=== PATIENT | male | born 1940 | race Caucasian/White ===

== ENCOUNTER 2018-08-28 12:03 | Inpatient (IN) | payer MEDICARE, MEDICAID ==
[2018-08-28] MEDS ORDERED: Sodium Chloride 0.9% 1,000 ML IV STA (12:32)
[2018-08-28 12:48] LABS: VENOUS BLOOD GAS BASE EXCESS 3.4 mmol/L (0.0-2.0); VENOUS BLOOD GAS PCO2 55 mmHg (40-60); VENOUS BLOOD GAS PO2 18 mm/Hg (30-55); VENOUS BLOOD PH 7.35 (7.32-7.43)
[2018-08-28] MEDS ORDERED: Piperacillin/Tazobact 4.5 GM in Sodium Chloride 0.9% 100 ML IVPB STA (12:56)
[2018-08-28] MEDS ORDERED: Vancomycin 1 g Inj ONE (13:04)
[2018-08-28 13:05] LABS: BASO % 0.4 % (0.0-2.0); EOS # 0.1 K/uL (0.0-0.7); EOS % 0.7 % (0.0-4.0); HEMOGLOBIN 13.4 g/dL (12.0-18.0); INR 1.5; LYMPH # 0.8 K/uL (1.0-4.3); LYMPH % 8.4 % (20.0-40.0); MEAN CELL VOLUME 93.5 fl (80.0-94.0); MEAN CORPUSCULAR HEMOGLOBIN 31.7 pg (27.0-31.0); MEAN CORPUSCULAR HGB CONC 33.9 g/dL (33.0-37.0); MEAN PLATELET VOLUME 7.8 fl (7.2-11.7); MONO # 0.4 K/uL (0.0-0.8); MONO % 3.9 % (0.0-10.0); NEUT # 8.2 K/uL (1.8-7.0); NEUT % 86.6 % (50.0-75.0); PLATELET COUNT 235 K/uL (130-400); PROTHROMBIN TIME 17.1 Seconds (9.8-13.1); RBC 4.23 Mil/uL (4.40-5.90); RED CELL DISTRIBUTION WIDTH 13.9 % (11.5-14.5); WHITE BLOOD COUNT 9.5 K/uL (4.8-10.8)
[2018-08-28 13:12] LABS: ALB/GLOB RATIO 1.2 (1.0-2.1); ALBUMIN 4.8 g/dL (3.5-5.0); ALT/SGPT 31 U/L (21-72); AST/SGOT 28 U/L (17-59); BLOOD UREA NITROGEN 18 mg/dl (9-20); CALCIUM 8.9 mg/dL (8.4-10.2); GFR NON-AFRICAN AMERICAN 59
[2018-08-28] MEDS: Lactated Ringer's 1,000 ML IV SCH ×3 (13:49→20:46)
--- NOTE | 2018-08-28 14:07 | CT ---
Date of service: 08/28/2018 PROCEDURE: CT HEAD WITHOUT CONTRAST. HISTORY: fever AMS COMPARISON: None available. TECHNIQUE: Axial computed tomography images were obtained through the head/brain without intravenous contrast. Radiation dose: Total exam DLP = 886.75 mGy-cm. This CT exam was performed using one or more of the following dose reduction techniques: Automated exposure control, adjustment of the mA and/or kV according to patient size, and/or use of iterative reconstruction technique. FINDINGS: HEMORRHAGE: No intracranial hemorrhage. BRAIN: No mass effect or edema. Chronic encephalomalacia is seen in the right anterior and posterior frontal lobe. Moderate atrophy VENTRICLES: Unremarkable. No hydrocephalus. CALVARIUM: Unremarkable. PARANASAL SINUSES: Unremarkable as visualized. No significant inflammatory changes. MASTOID AIR CELLS: Unremarkable as visualized. No inflammatory changes. OTHER FINDINGS: None. IMPRESSION: No acute intracranial findings
--- NOTE | 2018-08-28 14:31 | ED PDOC ---
HPI: SOB/CHF/COPD Time Seen by Provider: 08/28/18 12:31 Chief Complaint (Nursing): Shortness Of Breath Chief Complaint (Provider): Shortness Of Breath History Per: Patient History/Exam Limitations: no limitations Onset/Duration Of Symptoms: Days (x 1) Current Symptoms Are (Timing): Still Present Recently: Treated By A Physician Additional Complaint(s): 78 year old male with atrial fibrillation, HTN and diabetes presents to the ED with daughter for evaluation of shortness of breath with wheezing and cough, beginning this morning. Patient is altered. Therefore, history is obtained through the daughter. The patient recently underwent an extensive workup at [place] for COPD. Last night, he was started on Mucinex for COPD. Denies abdominal pain, headche, vomiting, diarrhea, hesitancy, dysuria, frequency and urinary hesitancy. PMD: Dr. Jones Past Medical History Reviewed: Historical Data, Nursing Documentation, Vital Signs Vital Signs: Last Vital Signs Temp 103.1 F H 08/28/18 13:48 Pulse 76 08/28/18 13:48 Resp 20 08/28/18 13:48 BP 138/78 08/28/18 13:48 Pulse Ox 96 08/28/18 13:48 Primary Care Provider: Non [facility] Provider, - Medical History PMH: Atrial Fibrillation, COPD, HTN, Chronic Kidney Disease - Surgical History Surgical History: No Surg Hx - Family History Family History: States: Unknown Family Hx - Social History Ex-Smoker (has not smoked in the last 12 months): Yes Alcohol: Social Drugs: Denies - Home Medications Home Medications: Ambulatory Orders Medication Instructions Recorded Albuterol Sulfate [Ventolin Hfa] 1 puff IH Q6 PRN 08/28/18 Apixaban [Eliquis] 5 mg PO Q12 08/28/18 Atorvastatin [Lipitor] 10 mg PO HS 08/28/18 Fluticasone/Umeclidin/Vilanter 1 puff IH DAILY 08/28/18 [Trelegy Ellipta 100-62.5-25] Gabapentin [Neurontin] 300 mg PO Q12 08/28/18 MetFORMIN ER [Glucophage XR] 500 mg PO DAILY 08/28/18 Terazosin [Hytrin] 6 mg PO HS 08/28/18 [id number] CD [Cardizem CD] 180 mg PO DAILY 08/28/18 - Allergies Allergies/Adverse Reactions: Allergies Allergy/AdvReac Type Severity Reaction Status Date / Time No Known Allergies Allergy Verified 08/28/18 12:13 Review of Systems ROS Statement: Except As Marked, All Systems Reviewed And Found Negative Respiratory: Positive for: Cough, Shortness of Breath, Wheezing Gastrointestinal: Negative for: Vomiting, Abdominal Pain, Diarrhea Genitourinary Male: Negative for: Dysuria, Frequency, Incontinence, Hematuria Neurological: Negative for: Headache Physical Exam - Reviewed Nursing Documentation Reviewed: Yes Vital Signs Reviewed: Yes - Physical Exam Appears: Positive for: No Acute Distress (patient found to be 105.3 degrees rectally) Head Exam: Positive for: ATRAUMATIC, NORMOCEPHALIC Skin: Positive for: Normal Color, Dry Eye Exam: Positive for: EOMI, Normal appearance, PERRL Cardiovascular/Chest: Positive for: Regular Rate, Rhythm. Negative for: Murmur Respiratory: Positive for: Normal Breath Sounds. Negative for: Respiratory Distress Extremity: Positive for: Normal ROM. Negative for: Deformity Neurological/Psych: Positive for: Alert, Lethargic (but arousabl; able to confirm lack of headache, nausea, vomiting or diarrhea) - Laboratory Results Result Diagrams: 08/28/18 12:38 08/28/18 12:38 Lab Results: pO2 18 mm/Hg (30-55) L 08/28/18 12:36 VBG pH 7.35 (7.32-7.43) 08/28/18 12:36 VBG pCO2 55 mmHg (40-60) 08/28/18 12:36 VBG HCO3 25.5 mmol/L 08/28/18 12:36 VBG Total CO2 32.1 mmol/L (22-28) H 08/28/18 12:36 VBG O2 Sat (Calc) 24.5 % (40-65) L 08/28/18 12:36 VBG Base Excess 3.4 mmol/L (0.0-2.0) H 08/28/18 12:36 VBG Potassium 4.0 mmol/L (3.6-5.2) 08/28/18 12:36 Sodium 138.0 mmol/L (132-148) 08/28/18 12:36 Chloride 103.0 mmol/L (98-107) 08/28/18 12:36 Glucose 98 mg/dL (75-110) 08/28/18 12:36 Lactate 3.2 mmol/L (0.7-2.1) H 08/28/18 12:36 FiO2 21.0 % 08/28/18 12:36 PT 17.1 Seconds (9.8-13.1) H 08/28/18 12:38 INR 1.5 08/28/18 12:38 APTT 33.0 Seconds (25.6-37.1) 08/28/18 12:38 Troponin I < 0.0120 ng/mL (0.00-0.120) 08/28/18 12:38 Total Bilirubin 0.7 mg/dl (0.2-1.3) 08/28/18 12:38 AST 28 U/L (17-59) 08/28/18 12:38 ALT 31 U/L (21-72) 08/28/18 12:38 Alkaline Phosphatase 62 U/L (38-126) 08/28/18 12:38 Total Protein 9.0 G/DL (6.3-8.2) H 08/28/18 12:38 Albumin 4.8 g/dL (3.5-5.0) 08/28/18 12:38 Globulin 4.1 gm/dL (2.2-3.9) H 08/28/18 12:38 Albumin/Globulin Ratio 1.2 (1.0-2.1) 08/28/18 12:38 - ECG ECG Rhythm: Positive for: Sinus Rhythm Interpretation Of Abn EKG: premature atrial contractions O2 Sat by Pulse Oximetry: 96 (RA) Pulse Ox Interpretation: Normal - Critical Care Total Time (In Min): 45 Comments: patient required immediate and recurrent bedside attention and discussion w multiple specialists and admitting MD Medical Decision Making Medical Decision Makin:07 MDM: Patient found to be febrile at 105.3 degrees F rectally initially. Sepsis protocol was initiated immediately. Bilateral IV access obtained with cultures. Fluids initiated with active cooling procedures and Tylenol Blood work reviewed and reveals elevated lactate at 3.3. Normal WBC and unremarkable chemistry. Negative for influenze CXR reviewed by me and reveals left sided infiltrate. 13:45 Mental staus improving as patient defervesces. Now able to tell full address, date and location. Continues to deny neck pain and headache. Will repeat lactate around 15:15 and admit to medicine as antibiotics are initiated. Dr. Jones PMD/pulm contacted at [facility] w management. 14:30 Dr. Brenner, medical service security professionals, made aware. 14:40 Dr. Dumont, infectious disease on-call, recommends continuing Zosyn and Vancomycin. Scribe Attestation: Documented by Renee Maria, acting as a scribe for Sebastien Tejada III, DO Provider Scribe Attestation: All medical record entries made by the Scribe were at my direction and personally dictated by me. I have reviewed the chart and agree that the record accurately reflects my personal performance of the history, physical exam, medical decision making, and the department course for this patient. I have also personally directed, reviewed, and agree with the discharge instructions and disposition. Disposition - Clinical Impression Clinical Impression: Severe sepsis, Pneumonia - Patient ED Disposition Is Patient to be Admitted: Yes Counseled Patient/Family Regarding: Studies Performed, Diagnosis - Disposition Disposition Time: 14:00 Condition: GUARDED - Pt Status Changed To: Hospital Disposition Of: Inpatient - Admit Certification Admit to Inpatient:: After my assessment, the patient will require hospitalization for at least two midnights. This is because of the severity of symptoms shown, intensity of services needed, and/or the medical risk in this patient being treated as an outpatient.
[2018-08-28 14:44] LABS: EOSINOPHIL 1 % (0-7); LYMPHOCYTE 8 % (20-50); MONOCYTE 4 % (0-10); NEUTROPHIL 87 % (42-75); PLATELET ESTIMATE NORMAL (NORMAL); TOTAL CELLS COUNTED 100
[2018-08-28 14:45] LABS: ANISOCYTOSIS SLIGHT; LARGE PLATELETS PRESENT
[2018-08-28] MEDS ORDERED: Lactated Ringer's 1,000 ML IV SCH (14:45)
--- NOTE | 2018-08-28 15:03 | RAD ---
Date of service: 08/28/2018 HISTORY: SOB COMPARISON: No prior. FINDINGS: LUNGS: Peripheral, left upper lobe infiltrates. The finding is marked on the study for review. PLEURA: No significant pleural effusion identified, no pneumothorax apparent. CARDIOVASCULAR: Atherosclerotic calcifications identified primarily aortic arch. No radiographic findings to suggest acute or significant cardiovascular disease. OSSEOUS STRUCTURES: No significant abnormalities. VISUALIZED UPPER ABDOMEN: Normal. OTHER FINDINGS: None. IMPRESSION: Peripheral left upper lobe infiltrates. Follow-up to resolution advised. No comparison studies.
[2018-08-28] MEDS ORDERED: Albuterol-Ipratrop 3 mg / 0.5 (3 ml) UD INH STA (15:30)
[2018-08-28 15:50] LABS: VENOUS BLOOD GAS BASE EXCESS 0.5 mmol/L (0.0-2.0); VENOUS BLOOD GAS PCO2 37 mmHg (40-60); VENOUS BLOOD GAS PO2 53 mm/Hg (30-55); VENOUS BLOOD PH 7.43 (7.32-7.43)
[2018-08-28] MEDS ORDERED: Albuterol-Ipratrop 3 mg / 0.5 (3 ml) UD ONE (16:32)
--- NOTE | 2018-08-28 17:49 | CARD ---
APPROVED REPORT Date of service: 08/28/2018 EKG Measurement Heart [id number] <Conclusion> Sinus rhythm with 1st degree AV block with premature atrial complexes Otherwise normal ECG
[2018-08-28] MEDS ORDERED: Sodium Chloride 3% for Inhalation 4 ML VIAL.NEB IH PRN (18:37)
[2018-08-28] MEDS ORDERED: methylPREDNISolone 80 MG in Sodium Chloride 0.9% 50 ML IVPB SCH (18:45)
[2018-08-28 19:09] LABS: SQUAMOUS EPITHIAL < 1 /hpf (0-5); URINE BILIRUBIN NEGATIVE (NEGATIVE); URINE BLOOD MODERATE (NEGATIVE); URINE CLARITY CLEAR (Clear); URINE COLOR YELLOW (YELLOW); URINE GLUCOSE (UA) 50 mg/dL (NEGATIVE); URINE LEUKOCYTE ESTERASE NEG Leu/uL (Negative); URINE PROTEIN 30 mg/dL (NEGATIVE); URINE UROBILINOGEN 0.2-1.0 mg/dL (0.2-1.0)
[2018-08-28] MEDS: Piperacillin/Tazobact 4.5 GM in Sodium Chloride 0.9% 100 ML IVPB SCH (19:30)
[2018-08-28] MEDS: Albuterol-Ipratrop 3 mg / 0.5 (3 ml) UD INH SCH (19:46)
[2018-08-29] MEDS: Piperacillin/Tazobact 4.5 GM in Sodium Chloride 0.9% 100 ML IVPB SCH ×3 (00:37→16:54)
[2018-08-29] MEDS: Albuterol-Ipratrop 3 mg / 0.5 (3 ml) UD INH SCH ×4 (01:01→19:36)
--- NOTE | 2018-08-29 04:36 | HP ---
HISTORY OF PRESENT ILLNESS: Mr. Turner is a 78-year-old male who was brought to the emergency room by daughter because of shortness of breath on the day of admission associated with fever. He had a temperature maximum of 105 degrees Fahrenheit rectally in the emergency room. He was delirious and confused and was admitted with pneumonia and sepsis. He recently had a comprehensive workup for chronic obstructive pulmonary disease at [facility] and was just placed on Mucinex the night before. He got IV antibiotics and IV hydration in the emergency room and also got some Tylenol. His temperature maximum in the telemetry unit was 99 degrees Fahrenheit. He was more alert and more responsive, and is able to give a history. PAST MEDICAL HISTORY: He has a past medical history of chronic obstructive pulmonary disease, hypertension, atrial fibrillation, and chronic kidney disease. FAMILY HISTORY: Noncontributory. SOCIAL HISTORY: He does not drink and does not use drugs and used to smoke years ago, quit years ago. PHYSICAL EXAMINATION; GENERAL: The patient is alert and oriented, appears to be much more comfortable at present. VITAL SIGNS: Blood pressure 138/78, pulse of 76, respiratory rate is 20. His temperature maximum was 105 degrees Fahrenheit in the emergency room down to 99 degrees at present, pulse is 96. SKIN: Shows fair turgor. HEENT: Pupils equal and reactive to light and accommodation. Mouth shows fair hygiene. LUNGS: Bilateral scattered rales with dullness at the bases. HEART: Irregularly irregular. ABDOMEN: Soft, nontender. No organomegaly. EXTREMITIES: Shows trace edema. GENITAL AND RECTAL: Unremarkable. CENTRAL NERVOUS SYSTEM: The patient is alert and oriented x3. LABORATORY DATA: Remarkable for venous blood gas that showed a pH of 7.43, pO2 of 53, pCO2 of 37, bicarbonate of 25, O2 saturation 93.8. WBC 9.5, hemoglobin 13.4, platelet count of 235,000. Lactate level 3.2, then down to 1.7. Sodium 138, potassium 3.8, BUN 18, creatinine 1.2. Influenza A and B negative. EKG, sinus rhythm with first-degree AV block with premature atrial complexes. Chest x-ray, peripheral left upper lobe infiltrates. CAT scan of the head, no acute intracranial findings. IMPRESSION: Altered mental status; fever secondary to pneumonia, left lung; history of atrial fibrillation (chronic); history of hypertension; history of chronic obstructive pulmonary disease with exacerbation; sepsis with dehydration. PLAN: IV hydration, IV antibiotics. Infectious Disease evaluation. Rodriguez cultures already done. We will reorder anticoagulation and blood pressure medication. The patient also has a history of diabetes mellitus. We will continue antidiabetic medications. Further therapy will depend on findings. Iain Brenner MD
[2018-08-29 06:08] LABS: BASO % 0.1 % (0.0-2.0); HEMOGLOBIN 11.6 g/dL (12.0-18.0); LYMPH # 0.5 K/uL (1.0-4.3); MEAN CELL VOLUME 94.2 fl (80.0-94.0); MEAN CORPUSCULAR HGB CONC 32.9 g/dL (33.0-37.0); MEAN PLATELET VOLUME 8.1 fl (7.2-11.7); MONO # 0.6 K/uL (0.0-0.8); MONO % 2.6 % (0.0-10.0); NEUT % 95.3 % (50.0-75.0); PLATELET COUNT 186 K/uL (130-400); RBC 3.74 Mil/uL (4.40-5.90); RED CELL DISTRIBUTION WIDTH 13.8 % (11.5-14.5); WHITE BLOOD COUNT 23.1 K/uL (4.8-10.8)
[2018-08-29 06:31] LABS: BLOOD UREA NITROGEN 23 mg/dl (9-20); CALCIUM 8.1 mg/dL (8.4-10.2); GFR NON-AFRICAN AMERICAN 53
[2018-08-29] MEDS: Lactated Ringer's 1,000 ML IV SCH (07:10)
[2018-08-29 07:16] LABS: ERYTHROCYTE SEDIMENTATION RATE 18 mm/hr (0-20)
[2018-08-29] MEDS: diltiaZEM 180 mg/24 Hours CD Cap PO SCH (08:49)
[2018-08-29] MEDS: FLUTICASONE PROPION/SALMETEROL 113-14 IH SCH ×2 (09:00→18:32)
--- NOTE | 2018-08-29 09:03 | CP.PCM.PN ---
Subjective - Date & Time of Evaluation Date of Evaluation: 08/29/18 Time of Evaluation: 09:04 - Subjective Subjective: AFEBRILE AWAKE AND ALERT AND ORIENTED SOB IMPROVED Objective - Vital Signs/Intake and Output Vital Signs (last 24 hours): Temp Pulse Resp BP Pulse Ox 97.5 F L 60 18 117/54 L 98 08/29/18 08:00 08/29/18 08:00 08/29/18 08:00 08/29/18 08:00 08/29/18 08:00 - Medications Medications: Current Medications Acetaminophen (Tylenol 325mg Tab) 650 mg PO Q4 PRN PRN Reason: Fever >100.4 F Albuterol/Ipratropium (Duoneb 3 Mg/0.5 Mg (3 Ml) Ud) 3 ml INH RQ6 [facility] Last Admin: 08/29/18 07:16 Dose: 3 ml Apixaban (Eliquis) 5 mg PO Q12 [facility]; Protocol Last Admin: 08/28/18 21:04 Dose: 5 mg Atorvastatin Calcium (Lipitor) 10 mg PO HS [facility] Last Admin: 08/28/18 21:04 Dose: 10 mg Diltiazem HCl (Cardizem Cd) 180 mg PO DAILY [facility] Gabapentin (Neurontin) 300 mg PO Q12 [facility] Last Admin: 08/28/18 21:04 Dose: 300 mg Home Med (Fluticasone/Umeclidin/Vilanter [Trelegy Ellipta 100-62.5-25]) 1 puff IH DAILY [facility] Vancomycin HCl 1 gm/ Sodium (Chloride) 250 mls @ 166.667 mls/hr IVPB DAILY [facility]; Protocol Piperacillin Sod/Tazobactam (Sod 4.5 gm/ Sodium Chloride) 100 mls @ 100 mls/hr IVPB Q8 [facility]; Protocol Last Admin: 08/29/18 00:37 Dose: 100 mls/hr Metformin HCl (Glucophage) 250 mg PO BIDAC [facility] Methylprednisolone (Solu-Medrol) 40 mg IV Q12 [facility] Terazosin HCl (Hytrin) 6 mg PO HS [facility] Last Admin: 08/28/18 21:09 Dose: 6 mg - Labs Labs: 08/29/18 04:25 08/29/18 04:25 PT 17.1 Seconds (9.8-13.1) H 08/28/18 12:38 INR 1.5 08/28/18 12:38 APTT 33.0 Seconds (25.6-37.1) 08/28/18 12:38 - Constitutional Appears: No Acute Distress - Head Exam Head Exam: ATRAUMATIC, NORMAL INSPECTION, NORMOCEPHALIC - Eye Exam Eye Exam: EOMI, Normal appearance, PERRL Pupil Exam: NORMAL ACCOMODATION, PERRL - ENT Exam ENT Exam: Mucous Membranes Moist, Normal Exam - Neck Exam Neck Exam: Full ROM, Normal Inspection. absent: Lymphadenopathy - Respiratory Exam Respiratory Exam: Prolonged Expiratory Phase, Rales, NORMAL BREATHING PATTERN - Cardiovascular Exam Cardiovascular Exam: Irregular Rhythm, +S1, +S2. absent: Murmur - GI/Abdominal Exam GI & Abdominal Exam: Soft, Normal Bowel Sounds. absent: Tenderness - Rectal Exam Rectal Exam: NORMAL INSPECTION - Extremities Exam Extremities Exam: Full ROM, Normal Capillary Refill, Normal Inspection. absent: Joint Swelling, Pedal Edema - Back Exam Back Exam: NORMAL INSPECTION - Neurological Exam Neurological Exam: Alert, Awake, CN II-XII Intact, Normal Gait, Oriented x3 - Psychiatric Exam Psychiatric exam: Normal Affect, Normal Mood - Skin Skin Exam: Dry, Intact, Normal Color, Warm Assessment and Plan - Assessment and Plan (Free Text) Assessment: PNEUMONIA WITH SEPSIS--IMPROVING COPD EXAC IMPROVING ATRIAL FIB--CHRONIC ALTERED MENTAL STATUS-RESOLVED Plan: CXR IN AM CONTINUE CURRENT RX
[2018-08-29] MEDS: MethylPREDNISolone 40 mg Vial IV SCH ×2 (09:07→21:08)
[2018-08-29 09:39] LABS: ANISOCYTOSIS SLIGHT; BANDS 21 % (0-2); BASOPHIL 1 % (0-2); LYMPHOCYTE 2 % (20-50); NEUTROPHIL 76 % (42-75); PLATELET ESTIMATE NORMAL (NORMAL); POIKILOCYTOSIS SLIGHT; TOTAL CELLS COUNTED 100
[2018-08-29 09:40] LABS: LARGE PLATELETS PRESENT; OVALOCYTES SLIGHT; SPHEROCYTES SLIGHT; TOXIC GRANULATION PRESENT
--- NOTE | 2018-08-29 15:19 | PQF ---
PROVIDER RESPONSE TEXT: COMMUNITY ACQUIRED PNEUMONIA--UNKNOWN ORGANISM REVIEWER QUERY TEXT: Pneumonia Specificity Pneumonia is documented in the Medical Record. AFTER WORK-UP : Please specify the possible type of p neumonia and the causative organism (includes probable or suspected) Such as: Type: -- Aspiration pneumonia (please also specify the aspirate) -- Bacterial (please document suspected or probable organism) if known -- Bronchopneumonia (please document suspected or probable organism) -- Interstitial pneumonia -- Organizing pneumonia / BOOP -- Pneumonia with influenza, nelida flu, or H1N1 flu -- RSV -- Tuberculosis, pulmonary -- Viral -- Other, please specify The patient's Clinical Indicators include: Admitted with SOB, wheezing, cough and AMS. CXR: Peripheral YOAV infiltrate. TEMP 105.3, HR 100 ,WBC 9.5-> 23.1 , L shift 21% BANDS, lactate 3.2 RX: Vancomycin and Zosyn Query created by: Megan Campos on 08/29/2018 11:13 AM Electronically signed by: Iain Brenner MD 08/29/2018 3:16 PM
[2018-08-30] MEDS: Piperacillin/Tazobact 4.5 GM in Sodium Chloride 0.9% 100 ML IVPB SCH ×3 (00:37→16:59)
[2018-08-30] MEDS: Albuterol-Ipratrop 3 mg / 0.5 (3 ml) UD INH SCH ×4 (01:19→19:24)
[2018-08-30 06:00] LABS: MEAN CELL VOLUME 92.8 fl (80.0-94.0); MEAN CORPUSCULAR HEMOGLOBIN 31.1 pg (27.0-31.0); MEAN CORPUSCULAR HGB CONC 33.5 g/dL (33.0-37.0); RBC 3.53 Mil/uL (4.40-5.90); RED CELL DISTRIBUTION WIDTH 14.3 % (11.5-14.5); WHITE BLOOD COUNT 24.1 K/uL (4.8-10.8)
[2018-08-30 06:40] LABS: CALCIUM 8.7 mg/dL (8.4-10.2)
--- NOTE | 2018-08-30 10:20 | CP.PCM.PN ---
Subjective - Date & Time of Evaluation Date of Evaluation: 08/30/18 Time of Evaluation: 10:33 - Subjective Subjective: SHORTNESS OF BREATH RESOLVED COUGH RESOLVED AFEBRILE CASE DISCUSSED WITH PT'S DAUGHTER AND PT--THEY WANT TO BE TRANSFERRED TO [facility] UNDER DR DU/DAIN"S SERVICE FOR FURTHER RX Objective - Vital Signs/Intake and Output Vital Signs (last 24 hours): Temp Pulse Resp BP Pulse Ox 97.8 F 65 20 155/77 H 98 08/30/18 08:24 08/30/18 08:24 08/30/18 08:24 08/30/18 08:24 08/30/18 08:24 - Medications Medications: Current Medications Acetaminophen (Tylenol 325mg Tab) 650 mg PO Q4 PRN PRN Reason: Fever >100.4 F Albuterol/Ipratropium (Duoneb 3 Mg/0.5 Mg (3 Ml) Ud) 3 ml INH RQ6 [facility] Last Admin: 08/30/18 07:40 Dose: 3 ml Apixaban (Eliquis) 5 mg PO Q12 [facility]; Protocol Last Admin: 08/29/18 21:08 Dose: 5 mg Atorvastatin Calcium (Lipitor) 10 mg PO HS [facility] Last Admin: 08/29/18 21:08 Dose: 10 mg Diltiazem HCl (Cardizem Cd) 180 mg PO DAILY [facility] Last Admin: 08/29/18 08:49 Dose: 180 mg Gabapentin (Neurontin) 300 mg PO Q12 [facility] Last Admin: 08/29/18 21:08 Dose: 300 mg Vancomycin HCl 1 gm/ Sodium (Chloride) 250 mls @ 166.667 mls/hr IVPB DAILY [facility]; Protocol Last Admin: 08/29/18 09:05 Dose: 166.667 mls/hr Piperacillin Sod/Tazobactam (Sod 4.5 gm/ Sodium Chloride) 100 mls @ 100 mls/hr IVPB Q8 [facility]; Protocol Last Admin: 08/30/18 00:37 Dose: 100 mls/hr Metformin HCl (Glucophage) 250 mg PO BIDAC [facility] Last Admin: 08/29/18 16:56 Dose: 250 mg Methylprednisolone (Solu-Medrol) 40 mg IV Q12 [facility] Last Admin: 08/29/18 21:08 Dose: 40 mg Terazosin HCl (Hytrin) 6 mg PO HS [facility] Last Admin: 08/29/18 21:07 Dose: 6 mg - Labs Labs: 08/30/18 04:30 08/30/18 04:30 PT 17.1 Seconds (9.8-13.1) H 08/28/18 12:38 INR 1.5 08/28/18 12:38 APTT 33.0 Seconds (25.6-37.1) 08/28/18 12:38 - Constitutional Appears: Well, No Acute Distress - Head Exam Head Exam: ATRAUMATIC, NORMAL INSPECTION, NORMOCEPHALIC - Eye Exam Eye Exam: EOMI, Normal appearance, PERRL Pupil Exam: NORMAL ACCOMODATION, PERRL - ENT Exam ENT Exam: Mucous Membranes Moist, Normal Exam - Neck Exam Neck Exam: Full ROM, Normal Inspection. absent: Lymphadenopathy - Respiratory Exam Respiratory Exam: Clear to Ausculation Bilateral, Rales, NORMAL BREATHING PATTERN - Cardiovascular Exam Cardiovascular Exam: Irregular Rhythm, +S1, +S2. absent: Murmur - GI/Abdominal Exam GI & Abdominal Exam: Soft, Normal Bowel Sounds. absent: Tenderness - Rectal Exam Rectal Exam: NORMAL INSPECTION - Extremities Exam Extremities Exam: Full ROM, Normal Capillary Refill, Normal Inspection. absent: Joint Swelling, Pedal Edema - Back Exam Back Exam: NORMAL INSPECTION - Neurological Exam Neurological Exam: Alert, Awake, CN II-XII Intact, Normal Gait, Oriented x3 - Psychiatric Exam Psychiatric exam: Normal Affect, Normal Mood - Skin Skin Exam: Dry, Intact, Normal Color, Warm Assessment and Plan - Assessment and Plan (Free Text) Assessment: PNEUMONIA WITH SEPSIS--CLINICALLY IMPROVING COPD--IMPROVED LEUKOCYTOSIS--DUE TO PNEUMONIA AND STEROIDS DM TYPE 2 ASHD ATRIAL FIB Plan: CONTINUE CURRENT RX INFECTIOUS DZ FOLLOW UP FOR APPROPRIATE ANTIBIOTIC RX--IN VIEW OF NEGATIVE BLOOD CULTURES FAMILY AND PT ADVISED THAT INS CO MAY NOT COVER LATERAL TRANSFER TO ANOTHER [facility] BUT DAUGHTER CALLED [facility] AND THEY WILL AUTHORIZE TRANSFER
[2018-08-30] MEDS: FLUTICASONE PROPION/SALMETEROL 113-14 IH SCH (10:23)
[2018-08-30] MEDS: diltiaZEM 180 mg/24 Hours CD Cap PO SCH (10:23)
[2018-08-30] MEDS: MethylPREDNISolone 40 mg Vial IV SCH ×2 (10:25→21:10)
--- NOTE | 2018-08-30 10:32 | CP.PCM.CON ---
History of Present Illness - History of Present Illness History of Present Illness: Pt with PMHx of COPD and DM came in with acute mental status changes and shortness of breath and diagnosed as copd exacerbation with pneumonia and sepsis. Pts mental status changes has since improved and pt feels better. Past Patient History - Past Medical History & Family History Past Medical History?: Yes - Past Social History Smoking Status: Never Smoked - CARDIAC Hx Atrial Fibrillation: Yes Hx Hypertension: Yes - PULMONARY Hx Chronic Obstructive Pulmonary Disease (COPD): Yes - RENAL Hx Chronic Kidney Disease: Yes - ENDOCRINE/METABOLIC Hx Endocrine Disorders: Yes Hx Diabetes Mellitus Type 2: Yes Other/Comment: "borderline diabetic" - HEMATOLOGICAL/ONCOLOGICAL Hx AIDS: No Hx Human Immunodeficiency Virus (HIV): No - MUSCULOSKELETAL/RHEUMATOLOGICAL Hx Falls: No - PSYCHIATRIC Hx Substance Use: No - SURGICAL HISTORY Hx Surgeries: Yes Hx Herniorrhaphy: Yes Other/Comment: Thyroidectomy - ANESTHESIA Hx Anesthesia: Yes Hx Anesthesia Reactions: No Hx Malignant Hyperthermia: No Has any member of the family had a problem w/ anesthesia?: No Meds Allergies/Adverse Reactions: Allergies Allergy/AdvReac Type Severity Reaction Status Date / Time No Known Allergies Allergy Verified 08/28/18 12:13 - Medications Medications: Current Medications Acetaminophen (Tylenol 325mg Tab) 650 mg PO Q4 PRN PRN Reason: Fever >100.4 F Albuterol/Ipratropium (Duoneb 3 Mg/0.5 Mg (3 Ml) Ud) 3 ml INH RQ6 [facility] Last Admin: 08/30/18 07:40 Dose: 3 ml Apixaban (Eliquis) 5 mg PO Q12 [facility]; Protocol Last Admin: 08/30/18 10:24 Dose: 5 mg Atorvastatin Calcium (Lipitor) 10 mg PO HS [facility] Last Admin: 08/29/18 21:08 Dose: 10 mg Diltiazem HCl (Cardizem Cd) 180 mg PO DAILY [facility] Last Admin: 08/30/18 10:23 Dose: 180 mg Gabapentin (Neurontin) 300 mg PO Q12 [facility] Last Admin: 08/30/18 10:25 Dose: 300 mg Vancomycin HCl 1 gm/ Sodium (Chloride) 250 mls @ 166.667 mls/hr IVPB DAILY [facility]; Protocol Last Admin: 08/30/18 10:25 Dose: 166.667 mls/hr Piperacillin Sod/Tazobactam (Sod 4.5 gm/ Sodium Chloride) 100 mls @ 100 mls/hr IVPB Q8 [facility]; Protocol Last Admin: 08/30/18 10:26 Dose: 100 mls/hr Metformin HCl (Glucophage) 250 mg PO BIDAC [facility] Last Admin: 08/30/18 10:24 Dose: 250 mg Methylprednisolone (Solu-Medrol) 40 mg IV Q12 [facility] Last Admin: 08/30/18 10:25 Dose: 40 mg Terazosin HCl (Hytrin) 6 mg PO HS [facility] Last Admin: 08/29/18 21:07 Dose: 6 mg Physical Exam - Respiratory Exam Respiratory Exam: Rhonchi Results - Vital Signs Recent Vital Signs: Last Vital Signs Temp 97.8 F 08/30/18 08:24 Pulse 65 08/30/18 10:23 Resp 20 08/30/18 08:24 BP 155/77 H 08/30/18 10:23 Pulse Ox 98 08/30/18 08:24 - Labs Result Diagrams: 08/30/18 04:30 08/30/18 04:30 Labs: Laboratory Results - last 24 hr 08/29/18 08/29/18 08/29/18 11:17 16:00 21:28 WBC RBC Hgb Hct MCV MCH MCHC RDW Plt Count Sodium Potassium Chloride Carbon Dioxide Anion Gap BUN Creatinine Est GFR ( Amer) Est GFR (Non-Af Amer) POC Glucose (mg/dL) 271 H 273 H 216 H Random Glucose Calcium 08/30/18 08/30/18 08/30/18 04:30 04:30 05:06 WBC 24.1 H RBC 3.53 L Hgb 11.0 L Hct 32.8 L MCV 92.8 MCH 31.1 H MCHC 33.5 RDW 14.3 Plt Count 182 Sodium 135 Potassium 3.8 Chloride 103 Carbon Dioxide 21 L Anion Gap 15 BUN 33 H Creatinine 1.4 Est GFR ( Amer) 59 Est GFR (Non-Af Amer) 49 POC Glucose (mg/dL) 209 H Random Glucose 213 H Calcium 8.7 Assessment & Plan - Assessment and Plan (Free Text) Assessment: Exacerbation of COPD with pneumonia and sepsis Clinically improved on Vancomycin and Zosyn #3/7 Leukocytosis most likely due to steroids May discontinue Vancomycin f/u c/s
--- NOTE | 2018-08-30 14:15 | RAD ---
Date of service: 08/30/2018 HISTORY: PNEUMONIA COMPARISON: Comparison chest dated 08/28/2018. TECHNIQUE: Chest PA and lateral views FINDINGS: LUNGS: There is a vague opacity again seen in the left lateral upper lung field. There appears to be some minimal curvilinear atelectasis left lung base. Slight scalloping right hemidiaphragm. PLEURA: There is slight blunting both posterior sulci; findings could be secondary to chronic pleural thickening however small effusions not excluded. CARDIOVASCULAR: Aortic atherosclerotic calcification present. Borderline cardiomegaly. No pulmonary vascular congestion. OSSEOUS STRUCTURES: Minor multilevel degenerative spondylosis of the thoracic spine. VISUALIZED UPPER ABDOMEN: Normal. OTHER FINDINGS: None. IMPRESSION: Persistent vague opacity seen in the left lateral upper lung field curvilinear atelectasis suspected in the left lung base. Slight blunting both posterior sulci could be secondary to chronic pleural thickening or small effusions not excluded.
[2018-08-31] MEDS: Piperacillin/Tazobact 4.5 GM in Sodium Chloride 0.9% 100 ML IVPB SCH ×3 (00:07→17:16)
[2018-08-31] MEDS: Albuterol-Ipratrop 3 mg / 0.5 (3 ml) UD INH SCH ×4 (01:06→20:16)
[2018-08-31 07:17] LABS: BASO % 0.1 % (0.0-2.0); HEMOGLOBIN 10.7 g/dL (12.0-18.0); LYMPH # 0.3 K/uL (1.0-4.3); LYMPH % 1.4 % (20.0-40.0); MEAN CELL VOLUME 92.5 fl (80.0-94.0); MEAN CORPUSCULAR HEMOGLOBIN 30.9 pg (27.0-31.0); MEAN CORPUSCULAR HGB CONC 33.5 g/dL (33.0-37.0); MEAN PLATELET VOLUME 8.4 fl (7.2-11.7); MONO # 0.6 K/uL (0.0-0.8); NEUT # 18.4 K/uL (1.8-7.0); NEUT % 95.5 % (50.0-75.0); PLATELET COUNT 203 K/uL (130-400); RBC 3.44 Mil/uL (4.40-5.90); RED CELL DISTRIBUTION WIDTH 14.2 % (11.5-14.5); WHITE BLOOD COUNT 19.2 K/uL (4.8-10.8)
[2018-08-31] MEDS: diltiaZEM 180 mg/24 Hours CD Cap PO SCH (09:04)
[2018-08-31] MEDS: MethylPREDNISolone 40 mg Vial IV SCH (09:06)
[2018-08-31] MEDS: FLUTICASONE PROPION/SALMETEROL 113-14 IH SCH ×3 (10:36→17:13)
--- NOTE | 2018-08-31 10:43 | CP.PCM.PN ---
Subjective - Date & Time of Evaluation Date of Evaluation: 08/31/18 Time of Evaluation: 10:46 - Subjective Subjective: CLINICALLY CONTINUES TO IMPROVE AFEBRILE NO COUGH,CHEST PAINS OR SOB PT AND DAUGHTER ARE WORRIED ABOUT HIS PLANNED INTERNATIONAL TRIP Objective - Vital Signs/Intake and Output Vital Signs (last 24 hours): Temp Pulse Resp BP Pulse Ox 98.3 F 85 18 146/72 97 08/31/18 07:54 08/31/18 09:04 08/31/18 07:54 08/31/18 09:04 08/31/18 07:54 - Medications Medications: Current Medications Acetaminophen (Tylenol 325mg Tab) 650 mg PO Q4 PRN PRN Reason: Fever >100.4 F Albuterol/Ipratropium (Duoneb 3 Mg/0.5 Mg (3 Ml) Ud) 3 ml INH RQ6 LAYA Last Admin: 08/31/18 07:42 Dose: 3 ml Apixaban (Eliquis) 5 mg PO Q12 LAYA; Protocol Last Admin: 08/31/18 09:05 Dose: 5 mg Atorvastatin Calcium (Lipitor) 10 mg PO HS LAYA Last Admin: 08/30/18 21:11 Dose: 10 mg Diltiazem HCl (Cardizem Cd) 180 mg PO DAILY LAYA Last Admin: 08/31/18 09:04 Dose: 180 mg Gabapentin (Neurontin) 300 mg PO Q12 LAYA Last Admin: 08/31/18 09:06 Dose: 300 mg Vancomycin HCl 1 gm/ Sodium (Chloride) 250 mls @ 166.667 mls/hr IVPB DAILY LAYA; Protocol Last Admin: 08/31/18 10:36 Dose: 166.667 mls/hr Piperacillin Sod/Tazobactam (Sod 4.5 gm/ Sodium Chloride) 100 mls @ 100 mls/hr IVPB Q8 LAYA; Protocol Last Admin: 08/31/18 09:07 Dose: 100 mls/hr Metformin HCl (Glucophage) 250 mg PO BIDAC LAYA Last Admin: 08/31/18 09:06 Dose: 250 mg Methylprednisolone (Solu-Medrol) 40 mg IV Q12 LAYA Last Admin: 08/31/18 09:06 Dose: 40 mg Terazosin HCl (Hytrin) 6 mg PO HS LAYA Last Admin: 08/30/18 21:11 Dose: 6 mg - Labs Labs: 08/31/18 05:24 08/30/18 04:30 PT 17.1 Seconds (9.8-13.1) H 08/28/18 12:38 INR 1.5 08/28/18 12:38 APTT 33.0 Seconds (25.6-37.1) 08/28/18 12:38 - Constitutional Appears: No Acute Distress - Head Exam Head Exam: ATRAUMATIC, NORMAL INSPECTION, NORMOCEPHALIC - Eye Exam Eye Exam: EOMI, Normal appearance, PERRL Pupil Exam: NORMAL ACCOMODATION, PERRL - ENT Exam ENT Exam: Mucous Membranes Moist, Normal Exam - Neck Exam Neck Exam: Full ROM, Normal Inspection. absent: Lymphadenopathy - Respiratory Exam Respiratory Exam: Clear to Ausculation Bilateral, NORMAL BREATHING PATTERN - Cardiovascular Exam Cardiovascular Exam: Irregular Rhythm, +S1, +S2. absent: Murmur - GI/Abdominal Exam GI & Abdominal Exam: Soft, Normal Bowel Sounds. absent: Tenderness - Rectal Exam Rectal Exam: NORMAL INSPECTION - Extremities Exam Extremities Exam: Full ROM, Normal Capillary Refill, Normal Inspection. absent: Joint Swelling, Pedal Edema - Back Exam Back Exam: NORMAL INSPECTION - Neurological Exam Neurological Exam: Alert, Awake, CN II-XII Intact, Normal Gait, Oriented x3 - Psychiatric Exam Psychiatric exam: Normal Affect, Normal Mood - Skin Skin Exam: Dry, Intact, Normal Color, Warm Assessment and Plan - Assessment and Plan (Free Text) Assessment: PNEUMONIA--IMPROVING SEPSIS IMPROVED ATRIAL FIB--STABLE LEUKOCYTOSIS IMPROVING COPD STABLE HTN-STABLE Plan: CONTINUE ANTIBIOTIC RX D/C SOLUMEDROL CASE DISCUSSED WITH PT AND DAUGHTER--WILL REPEAT CBC IN AM--PROBABLY D/C ON PO ANTIBIOTICS IF WBC CONTINUES TO IMPROVE CXR IN AM REASSURED AND ASKED TO CONCENTRATE ON GETTING BETTER INSTEAD OF HIS PLANNED TRIP
[2018-08-31 10:55] LABS: BANDS 1 % (0-2); HYPOCHROMIC SLIGHT; LYMPHOCYTE 2 % (20-50); MONOCYTE 4 % (0-10); NEUTROPHIL 93 % (42-75); PLATELET ESTIMATE NORMAL (NORMAL); TOTAL CELLS COUNTED 100
[2018-09-01] MEDS: Piperacillin/Tazobact 4.5 GM in Sodium Chloride 0.9% 100 ML IVPB SCH ×2 (00:16→09:48)
[2018-09-01] MEDS: Albuterol-Ipratrop 3 mg / 0.5 (3 ml) UD INH SCH ×2 (01:37→08:00)
[2018-09-01 07:00] LABS: LYMPH # 0.3 K/uL (1.0-4.3); LYMPH % 1.9 % (20.0-40.0); MEAN CELL VOLUME 92.9 fl (80.0-94.0); MEAN CORPUSCULAR HEMOGLOBIN 30.9 pg (27.0-31.0); MEAN CORPUSCULAR HGB CONC 33.3 g/dL (33.0-37.0); MEAN PLATELET VOLUME 8.4 fl (7.2-11.7); MONO # 0.6 K/uL (0.0-0.8); MONO % 4.4 % (0.0-10.0); NEUT # 13.1 K/uL (1.8-7.0); NEUT % 93.7 % (50.0-75.0); RBC 3.56 Mil/uL (4.40-5.90); RED CELL DISTRIBUTION WIDTH 14.1 % (11.5-14.5)
[2018-09-01] MEDS: FLUTICASONE PROPION/SALMETEROL 113-14 IH SCH (08:05)
[2018-09-01] MEDS: diltiaZEM 180 mg/24 Hours CD Cap PO SCH (08:10)
[2018-09-01 08:16] VITALS: BP 164/80; PULSE 70
--- NOTE | 2018-09-01 08:19 | RAD ---
Date of service: 09/01/2018 HISTORY: PNEUMONIA COMPARISON: Chest radiographs 08/30/2018. TECHNIQUE: Chest PA and lateral views FINDINGS: LUNGS: No interval acute pulmonary disease appreciable. Limited linear atelectasis or fibrosis is again seen at the inferior left lung zone laterally. Mammillation right hemidiaphragm is reiterated. PLEURA: No significant pleural effusion identified. No pneumothorax apparent. CARDIOVASCULAR: Calcific atherosclerotic changes are seen related to the thoracic aorta. Stable borderline cardiomegaly. No pulmonary vascular congestion. OSSEOUS STRUCTURES: No significant abnormalities. VISUALIZED UPPER ABDOMEN: Normal. OTHER FINDINGS: None. IMPRESSION: No interval acute cardiopulmonary disease appreciable. Limited linear atelectasis or fibrosis inferior left lung zone laterally again evident. Stable borderline cardiomegaly.
[2018-09-01 08:20] VITALS: RESP 20; TEMP 98.1; O2SAT 96
--- NOTE | 2018-09-01 10:10 | CP.PCM.DIS ---
Provider - Provider Date of Admission: 08/28/18 14:32 Attending physician: Iain Leon MD Consults: 08/28/18 14:37 Infectious Disease Consult Stat Comment: Consulting Provider: Rubi Yuan Consulting Physician: Rubi Yuan Reason for Consult: sepsis fever 105.3 08/30/18 10:34 Social Work Referral Routine Comment: Dr leon Physician Instructions: Reason For Exam: TRANSFER TO [facility] Time Spent in preparation of Discharge (in minutes): 35 Diagnosis - Discharge Diagnosis (1) Diabetes 1.5, managed as type 2 Status: Acute (2) Hypertension Status: Acute (3) COPD exacerbation Status: Acute (4) Pneumonia Status: Acute (5) Severe sepsis Status: Acute (6) Atrial fibrillation Status: Acute (7) History of chronic kidney disease Status: Acute Hospital Course - Lab Results Lab Results: Micro Results 08/31/18 13:27 Sputum Gram Stain - Final 08/31/18 13:27 Sputum Sputum Culture - Preliminary NORMAL ORAL LOLLY 08/28/18 12:53 Blood-Venous Blood Culture - Preliminary NO GROWTH AFTER 3 DAYS 08/28/18 12:38 Blood-Venous Blood Culture - Preliminary NO GROWTH AFTER 3 DAYS 08/28/18 18:42 Urine,Clean Catch Urine Culture - Final No Growth (<1,000 CFU/ML) Most Recent Lab Values WBC 14.0 K/uL (4.8-10.8) H 09/01/18 05:14 RBC 3.56 Mil/uL (4.40-5.90) L 09/01/18 05:14 Hgb 11.0 g/dL (12.0-18.0) L 09/01/18 05:14 Hct 33.1 % (35.0-51.0) L 09/01/18 05:14 MCV 92.9 fl (80.0-94.0) 09/01/18 05:14 MCH 30.9 pg (27.0-31.0) 09/01/18 05:14 MCHC 33.3 g/dL (33.0-37.0) 09/01/18 05:14 RDW 14.1 % (11.5-14.5) 09/01/18 05:14 Plt Count 199 K/uL (130-400) 09/01/18 05:14 MPV 8.4 fl (7.2-11.7) 09/01/18 05:14 Neut % (Auto) 93.7 % (50.0-75.0) H 09/01/18 05:14 Lymph % (Auto) 1.9 % (20.0-40.0) L 09/01/18 05:14 Angelina % (Auto) 4.4 % (0.0-10.0) 09/01/18 05:14 Eos % (Auto) 0.0 % (0.0-4.0) 09/01/18 05:14 Baso % (Auto) 0.0 % (0.0-2.0) 09/01/18 05:14 Neut # (Auto) 13.1 K/uL (1.8-7.0) H 09/01/18 05:14 Lymph # (Auto) 0.3 K/uL (1.0-4.3) L 09/01/18 05:14 Angelina # (Auto) 0.6 K/uL (0.0-0.8) 09/01/18 05:14 Eos # (Auto) 0.0 K/uL (0.0-0.7) 09/01/18 05:14 Baso # (Auto) 0.0 K/uL (0.0-0.2) 09/01/18 05:14 Total Counted Cancelled 09/01/18 05:14 Neutrophils % (Manual) 93 % (42-75) H 08/31/18 05:24 Band Neutrophils % 1 % (0-2) 08/31/18 05:24 Lymphocytes % (Manual) 2 % (20-50) L 08/31/18 05:24 Reactive Lymphs % Cancelled 09/01/18 05:14 Monocytes % (Manual) 4 % (0-10) 08/31/18 05:24 Eosinophils % (Manual) 1 % (0-7) 08/28/18 12:38 Basophils % (Manual) 1 % (0-2) 08/29/18 04:25 Metamyelocytes % Cancelled 09/01/18 05:14 Myelocytes % Cancelled 09/01/18 05:14 Promyelocytes % Cancelled 09/01/18 05:14 Blast Cells % Cancelled 09/01/18 05:14 Plasma Cell % (Manual) Cancelled 09/01/18 05:14 Nucleated RBC % Cancelled 09/01/18 05:14 Hypersegmented Polys Cancelled 09/01/18 05:14 Smudge Cells Cancelled 09/01/18 05:14 Toxic Granulation Present 08/29/18 04:25 Dohle Bodies Cancelled 09/01/18 05:14 Keila Rods Cancelled 09/01/18 05:14 Platelet Estimate Normal (NORMAL) 08/31/18 05:24 Plt Clumps, EDTA Cancelled 09/01/18 05:14 Large Platelets Present 08/29/18 04:25 Giant Platelets Cancelled 09/01/18 05:14 RBC Morphology Cancelled 09/01/18 05:14 Polychromasia Cancelled 09/01/18 05:14 Hypochromasia (manual) Slight 08/31/18 05:24 Poikilocytosis (manual Slight 08/29/18 04:25 Basophilic Stippling Cancelled 09/01/18 05:14 Anisocytosis (manual) Slight 08/29/18 04:25 Microcytosis (manual) Cancelled 09/01/18 05:14 Macrocytosis (manual) Cancelled 09/01/18 05:14 Spherocytes Slight 08/29/18 04:25 Sickle Cells Cancelled 09/01/18 05:14 Target Cells Cancelled 09/01/18 05:14 Tear Drop Cells Cancelled 09/01/18 05:14 Ovalocytes Slight 08/29/18 04:25 Stomatocytes Cancelled 09/01/18 05:14 Helmet Cells Cancelled 09/01/18 05:14 Acevedo-Williamson Bodies Cancelled 09/01/18 05:14 Chantelle Cells Cancelled 09/01/18 05:14 Acanthocytes (Spur) Cancelled 09/01/18 05:14 Rouleaux Cancelled 09/01/18 05:14 Schistocytes Cancelled 09/01/18 05:14 ESR 18 mm/hr (0-20) 08/29/18 04:25 PT 17.1 Seconds (9.8-13.1) H 08/28/18 12:38 INR 1.5 08/28/18 12:38 APTT 33.0 Seconds (25.6-37.1) 08/28/18 12:38 pO2 53 mm/Hg (30-55) 08/28/18 15:40 VBG pH 7.43 (7.32-7.43) 08/28/18 15:40 VBG pCO2 37 mmHg (40-60) L 08/28/18 15:40 VBG HCO3 25.1 mmol/L 08/28/18 15:40 VBG Total CO2 25.7 mmol/L (22-28) 08/28/18 15:40 VBG O2 Sat (Calc) 93.8 % (40-65) H 08/28/18 15:40 VBG Base Excess 0.5 mmol/L (0.0-2.0) 08/28/18 15:40 VBG Potassium 3.5 mmol/L (3.6-5.2) L 08/28/18 15:40 Sodium 137.0 mmol/L (132-148) 08/28/18 15:40 Chloride 108.0 mmol/L (98-107) H 08/28/18 15:40 Glucose 114 mg/dL (75-110) H 08/28/18 15:40 Lactate 1.7 mmol/L (0.7-2.1) 08/28/18 15:40 FiO2 21.0 % 08/28/18 15:40 Sodium 135 mmol/l (132-148) 08/30/18 04:30 Potassium 3.8 MMOL/L (3.6-5.0) 08/30/18 04:30 Chloride 103 mmol/L (98-107) 08/30/18 04:30 Carbon Dioxide 21 mmol/L (22-30) L 08/30/18 04:30 Anion Gap 15 (10-20) 08/30/18 04:30 BUN 33 mg/dl (9-20) H 08/30/18 04:30 Creatinine 1.4 mg/dl (0.8-1.5) 08/30/18 04:30 Est GFR ( Amer) 59 08/30/18 04:30 Est GFR (Non-Af Amer) 49 08/30/18 04:30 POC Glucose (mg/dL) 224 mg/dL (65-110) H 09/01/18 06:06 Random Glucose 213 mg/dL (75-110) H 08/30/18 04:30 Calcium 8.7 mg/dL (8.4-10.2) 08/30/18 04:30 Phosphorus 2.3 mg/dl (2.5-4.5) L 08/28/18 12:38 Magnesium 1.8 MG/DL (1.6-2.3) 08/28/18 12:38 Total Bilirubin 0.7 mg/dl (0.2-1.3) 08/28/18 12:38 AST 28 U/L (17-59) 08/28/18 12:38 ALT 31 U/L (21-72) 08/28/18 12:38 Alkaline Phosphatase 62 U/L (38-126) 08/28/18 12:38 Troponin I < 0.0120 ng/mL (0.00-0.120) 08/28/18 12:38 Total Protein 9.0 G/DL (6.3-8.2) H 08/28/18 12:38 Albumin 4.8 g/dL (3.5-5.0) 08/28/18 12:38 Globulin 4.1 gm/dL (2.2-3.9) H 08/28/18 12:38 Albumin/Globulin Ratio 1.2 (1.0-2.1) 08/28/18 12:38 Venous Blood Potassium 3.5 mmol/L (3.6-5.2) L 08/28/18 15:40 Urine Color Yellow (YELLOW) 08/28/18 18:42 Urine Clarity Clear (Clear) 08/28/18 18:42 Urine pH 5.0 (5.0-8.0) 08/28/18 18:42 Ur Specific [place] 1.015 (1.003-1.030) 08/28/18 18:42 Urine Protein 30 mg/dL (NEGATIVE) 08/28/18 18:42 Urine Glucose (UA) 50 mg/dL (NEGATIVE) 08/28/18 18:42 Urine Ketones Negative mg/dL (NEGATIVE) 08/28/18 18:42 Urine Blood Moderate (NEGATIVE) 08/28/18 18:42 Urine Nitrate Negative (NEGATIVE) 08/28/18 18:42 Urine Bilirubin Negative (NEGATIVE) 08/28/18 18:42 Urine Urobilinogen 0.2-1.0 mg/dL (0.2-1.0) 08/28/18 18:42 Ur Leukocyte Esterase Neg Adele/uL (Negative) 08/28/18 18:42 Urine RBC (Auto) 7 /hpf (0-3) H 08/28/18 18:42 Urine Microscopic WBC 1 /hpf (0-5) 08/28/18 18:42 Ur Squamous Epith Cells < 1 /hpf (0-5) 08/28/18 18:42 Influenza Typ A,B (EIA) Negative for flu a/b (NEGATIVE) 08/28/18 13:00 Ur L.pneumophila Ag Negative (NEGATIVE) 08/31/18 16:15 Mycoplasma pneumon IgM Negative (NEGATIVE) 08/31/18 10:00 - Hospital Course Hospital Course: shortness of breath,fever and cough resolved wbc--14k cxr-no active pulmonary dz 78 yr old male admitted with swepsis and pneumonia clinical picture improved with antibiotic rx he will be d/chavo home on oral antibiotics[zpak] 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 Discharge Exam - Head Exam Head Exam: ATRAUMATIC, NORMAL INSPECTION, NORMOCEPHALIC - Eye Exam Eye Exam: EOMI, Normal appearance, PERRL Pupil Exam: NORMAL ACCOMODATION, PERRL - GI/Abdominal Exam GI & Abdominal Exam: Normal Bowel Sounds - Rectal Exam Rectal Exam: NORMAL INSPECTION - Neurological Exam Neurological exam: Alert, CN II-XII Intact, Normal Gait, Oriented x3, Reflexes Normal - Psychiatric Exam Psychiatric exam: Normal Affect, Normal Mood - Skin Skin Exam: Dry, Intact, Normal Color, Warm Discharge Plan - Follow Up Plan Condition: GUARDED Disposition: HOME/ ROUTINE Instructions: Pneumonia, Adult (DC), Sepsis, Adult (DC) Additional Instructions: follow up appt with on sunday09/06/18 1:00pm Referrals: Santiago Davis MD [Medical Doctor] - Ramez Hyman MD [Medical Doctor] - Iain Leon MD [Staff Provider] -
== END 2018-09-01 11:55 | disposition home or self-care (01) | DRG 871 ==
LOC: H.ER 12:03 → H.ERHOLD 14:32 → H.TEL 18:18
PROVIDERS: ADMIT Internal Medicine Pulmonary Disease; ATTEND Internal Medicine Pulmonary Disease
DX: A41.9 Sepsis, unspecified organism (principal); J18.9 Pneumonia, unspecified organism; J44.1 Chronic obstructive pulmonary disease with (acute) exacerbation; J44.0 Chronic obstructive pulmonary disease with (acute) lower respiratory infection; I48.2 Chronic atrial fibrillation; R65.20 Severe sepsis without septic shock; I12.9 Hypertensive chronic kidney disease with stage 1 through stage 4 chronic kidney disease, or unspecified chronic kidney disease; N18.9 Chronic kidney disease, unspecified; E11.22 Type 2 diabetes mellitus with diabetic chronic kidney disease; E86.0 Dehydration; I25.10 Atherosclerotic heart disease of native coronary artery without angina pectoris; Z79.01 Long term (current) use of anticoagulants; Z79.84 Long term (current) use of oral hypoglycemic drugs; Z87.891 Personal history of nicotine dependence